=== PATIENT | female | born 1985 | race Caucasian/White ===

== ENCOUNTER 2018-07-19 17:23 | Emergency (ER) | payer OTHER ==
[2018-07-19 17:53] LABS: EOSINOPHILS % (AUTO) 5.7 % (0.0-8.0); HEMATOCRIT 38.6 % (36-48); LYMPHOCYTES % (AUTO) 30.2 % (21.0-51.0); MEAN CORPUSCULAR HEMOGLOBIN 28.9 pg (27.0-33.0); MEAN CORPUSCULAR HGB CONC 34.5 g/dL (32.0-36.0); MEAN CORPUSCULAR VOLUME 83.9 fL (79-99); MONOCYTES % (AUTO) 6.4 % (3.0-13.0); NEUTROPHILS % (AUTO) 56.7 % (40.0-77.0); NUCLEATED RED BLOOD CELLS 0.1 % (0.0-0.19); PLATELET COUNT (AUTO) 259 K/uL (130-400); RED BLOOD CELL COUNT(AUTO) 4.59 MIL/uL (4.00-5.50); WHITE BLOOD COUNT (AUTO) 6.4 K/uL (4.8-10.8)
[2018-07-19 18:00] LABS: CREATININE 0.7 mg/dL (0.5-1.5); POTASSIUM 3.6 mmol/L (3.5-5.1)
[2018-07-19 18:04] LABS: ALBUMIN 3.8 g/dL (3.5-5.0); BILIRUBIN,DIRECT 0.1 mg/dL (0.0-0.3); BILIRUBIN,TOTAL 0.7 mg/dL (0.2-1.0); TOTAL PROTEIN, SERUM 7.6 g/dL (6.0-8.3)
[2018-07-19] MEDS ORDERED: KETOROLAC TROMETHAMINE 30MG/ML ONE (18:39)
[2018-07-19] MEDS ORDERED: ONDANSETRON HCL 4 MG/2 ML VIAL ONE (18:39)
[2018-07-19] MEDS ORDERED: SODIUM CHLORIDE 0.9% 1000ML 1,000 ML IV ONE (18:39)
== END 2018-07-19 20:36 | disposition home or self-care (01) ==
LOC: EDH 17:23
DX: R07.89 Other chest pain (principal); R42 Dizziness and giddiness; Z98.51 Tubal ligation status; Z90.49 Acquired absence of other specified parts of digestive tract; Z72.0 Tobacco use
CPT/HCPCS: 36415; 71045; 80048; 80076; 82550; 84484; 85025; 93005; 96361; 96374; 96375; 99284; J1885; J2405; J7030

== ENCOUNTER 2019-01-28 23:26 | Emergency (ER) | payer BC, OTHER | END 2019-01-28 23:51 | disposition home or self-care (01) | LOC: EDH 23:26 | DX: H92.02 Otalgia, left ear (principal); I48.91 Unspecified atrial fibrillation; Z90.49 Acquired absence of other specified parts of digestive tract; Z98.890 Other specified postprocedural states ==

== ENCOUNTER 2019-07-26 21:05 | Emergency (ER) | payer OTHER | END 2019-07-26 23:51 | disposition home or self-care (01) | LOC: EDH 21:05 | DX: S90.869A Insect bite (nonvenomous), unspecified foot, initial encounter (principal); I48.91 Unspecified atrial fibrillation; Z90.49 Acquired absence of other specified parts of digestive tract; Z98.890 Other specified postprocedural states; Z88.6 Allergy status to analgesic agent | CPT/HCPCS: 99281 ==

== ENCOUNTER 2020-03-01 23:24 | Emergency (ER) | payer OTHER ==
[2020-03-02] MEDS ORDERED: KETOROLAC TROMETHAMINE 60 MG/2 ML VIAL ONE (00:21)
[2020-03-02] MEDS ORDERED: LIDOCAINE 5% TOPICAL PATCH TP ONE (00:22)
[2020-03-02] MEDS ORDERED: CYCLOBENZAPRINE HCL 10 MG TABLET ONE (00:22)
== END 2020-03-02 00:40 | disposition home or self-care (01) ==
LOC: EDH 23:24
DX: M62.830 Muscle spasm of back (principal); F43.0 Acute stress reaction; R06.4 Hyperventilation; R42 Dizziness and giddiness; R19.7 Diarrhea, unspecified; I48.91 Unspecified atrial fibrillation; Z88.6 Allergy status to analgesic agent; Z98.890 Other specified postprocedural states; Z72.0 Tobacco use
CPT/HCPCS: 93005; 96372; 99283; J1885

== ENCOUNTER 2020-08-09 13:30 | Emergency (ER) | payer SELFPAY ==
[2020-08-09 14:12] LABS: APPEARANCE,URINE Cloudy (CLEAR); BILIRUBIN,URINE Negative (NEGATIVE); COLOR,URINE Yellow (YELLOW); GLUCOSE, URINE (UA) Negative (NEGATIVE); KETONES,URINE Negative (NEGATIVE); LEUKOCYTE ESTERASE ,URINE Large (NEGATIVE); NITRATE,URINE Negative (NEGATIVE); OCCULT BLOOD,URINE Large (NEGATIVE); PH,URINE 6.5 (5.0-8.0); PROTEIN,URINE Negative (NEGATIVE); UROBILINOGEN,URINE 0.2 mg/dL (0.2-1.0)
[2020-08-09 14:15] LABS: HCG,QUAL RESULT NEGATIVE (NEGATIVE)
[2020-08-09] MEDS ORDERED: CEFTRIAXONE 1G VIAL ONE (14:17)
[2020-08-09] MEDS ORDERED: LIDOCAINE HCL-MPF 1% 2ML VIAL ONE (14:17)
[2020-08-09] MEDS ORDERED: KETOROLAC 30MG VIAL (30MG/ML) ONE (14:17)
[2020-08-09] MEDS ORDERED: PHENAZOPYRIDINE HCL 200 MG TABLET ONE (14:18)
[2020-08-09] MEDS ORDERED: ACETAMINOPHEN 325 MG TAB ONE (14:18)
[2020-08-09 14:43] LABS: BACTERIA,URINE Few /HPF (None Seen); SQUAMOUS EPITHELIAL CELL,UR Few /HPF (0-2)
== END 2020-08-09 15:19 | disposition home or self-care (01) ==
LOC: EDH 13:30
DX: N39.0 Urinary tract infection, site not specified (principal); I48.91 Unspecified atrial fibrillation; Z98.890 Other specified postprocedural states; Z90.49 Acquired absence of other specified parts of digestive tract; Z88.5 Allergy status to narcotic agent
CPT/HCPCS: 81001; 81025; 87077; 87088; 87186; 96372 ×2; 99284; J0696; J1885; J3490

== ENCOUNTER 2023-05-19 23:25 | Inpatient (IN) | payer OTHER ==
[~2023-05-19] VITALS: Ht 167.6 cm; Wt 86.4 kg
[2023-05-19 23:55] LABS: APPEARANCE,URINE CLEAR (CLEAR); BILIRUBIN,URINE NEGATIVE (NEGATIVE); COLOR,URINE COLORLESS (YELLOW); GLUCOSE, URINE (UA) NEGATIVE (NEGATIVE); KETONES,URINE NEGATIVE (NEGATIVE); LEUKOCYTE ESTERASE ,URINE 75 Leu/uL (NEGATIVE); NITRATE,URINE NEGATIVE (NEGATIVE); OCCULT BLOOD,URINE MODERATE (NEGATIVE); PH,URINE 6.5 (5.0-8.0); PROTEIN,URINE NEGATIVE (NEGATIVE); UROBILINOGEN,URINE 0.2 mg/dL (0.2-1.0)
[2023-05-19 23:57] LABS: ADD UA MICROSCOPIC YES
[2023-05-20] VITALS (9 sets, daily range): BP systolic 95–131; BP diastolic 59–74; PULSE 58–92; RESP 18–20; O2SAT 98–100
[2023-05-20] LABS: SQUAMOUS EPITHELIAL CELL,UR RARE /HPF (0-2)
[2023-05-20] MEDS ORDERED: 0.9%NACL 1000ML 1,000 ML IV ONE
[2023-05-20] MEDS ORDERED: ONDANSETRON 4MG INJ IVP ONE
[2023-05-20 00:41] LABS: BASOPHILS % (AUTO) 1.1 % (0.0-5.0); EOSINOPHILS # (AUTO) 0.81 K/uL (0.00-0.70); EOSINOPHILS % (AUTO) 9.2 % (0.0-8.0); HEMATOCRIT 35.2 % (36-48); IMMATURE GRANULOCYTE ABSOLUTE 0.02 K/uL (0-1); LYMPHOCYTES # (AUTO) 2.7 K/uL (1.0-4.8); LYMPHOCYTES % (AUTO) 31.2 % (21.0-51.0); MEAN CORPUSCULAR HEMOGLOBIN 27.9 pg (27.0-33.0); MEAN CORPUSCULAR HGB CONC 33.8 g/dL (32.0-36.0); MEAN CORPUSCULAR VOLUME 82.4 fL (79-99); MONOCYTES # (AUTO) 0.6 K/uL (0.1-1.0); MONOCYTES % (AUTO) 6.6 % (3.0-13.0); NEUTROPHILS # (AUTO) 4.5 K/uL (1.8-7.7); NEUTROPHILS % (AUTO) 51.7 % (40.0-77.0); PLATELET COUNT (AUTO) 266 K/uL (130-400); RED BLOOD CELL COUNT(AUTO) 4.27 MIL/uL (4.00-5.50); RED CELL DISTRIBUTION WIDTH 14.3 % (11.0-15.5); WHITE BLOOD COUNT (AUTO) 8.8 K/uL (4.8-10.8)
[2023-05-20 00:49] LABS: CREATININE 0.6 mg/dL (0.5-1.5); POTASSIUM 3.4 mmol/L (3.5-5.1)
[2023-05-20 01:00] LABS: ALBUMIN 3.4 g/dL (3.5-5.0); BILIRUBIN,TOTAL 0.4 mg/dL (0.2-1.0)
[2023-05-20] MEDS ORDERED: IOHEXOL 350 MG/ML 100ML INFUS..BTL IV ONE (01:35)
[2023-05-20] MEDS ORDERED: ZOSYN 3.375GM+NS 50ML 50 ML ONE (02:15)
[2023-05-20] MEDS ORDERED: 0.9%NACL 1000ML 1,000 ML IV STA (02:16)
[2023-05-20] MEDS ORDERED: HYDROMORPHONE 1 MG INJ IVP STA (02:16)
[2023-05-20] MEDS: ZOSYN 3.375GM +NS 50ML IVPB STA ×2 (02:24→02:30)
[2023-05-20] MEDS ORDERED: ZOSYN 3.375GM +NS 50ML IV ONE (02:30)
[2023-05-20] MEDS ORDERED: ACETAMINOPHEN 650 MG SUPPOSITORY RC PRN (02:30)
[2023-05-20] MEDS ORDERED: HYDROMORPHONE 1 MG INJ IVP ONE ×2 (02:30)
[2023-05-20] MEDS ORDERED: MORPHINE 2 MG SYG IV PRN (02:30)
[2023-05-20] MEDS ORDERED: MAGNESIUM 2GM PREMIX 50ML 50 ML IV PRN (03:00)
[2023-05-20] MEDS ORDERED: POTASSIUM CHLORIDE 20MEQ/100ML 100 ML IV PRN (03:00)
[2023-05-20] MEDS: LACTATED RINGERS 1000ML 1,000 ML IV SCH ×2 (03:13→17:51)
[2023-05-20] MEDS: LEVOFLOXACIN 750 MG/D5W 150ML BAG IV SCH (05:00)
[2023-05-20] MEDS ORDERED: ZOSYN 3.375GM+NS 50ML 50 ML IV SCH (05:00)
[2023-05-20] MEDS ORDERED: SOLU-MEDROL 125MG VIAL IVP ONE (05:00)
[2023-05-20] MEDS ORDERED: DiphenhydrAMINE HCL 50 MG/ML VIAL IV ONE (05:00)
[2023-05-20] MEDS ORDERED: FAMOTIDINE 20MG VIAL IV ONE (05:00)
[2023-05-20] MEDS: ONDANSETRON 4MG INJ IV PRN (05:16)
[2023-05-20] MEDS ORDERED: VITAD50000 PO (06:19)
[2023-05-20] MEDS: METRONIDAZOLE 500MG/100ML BAG 100 ML IVPB SCH ×3 (06:37→21:28)
[2023-05-20 06:48] LABS: CREATININE 0.6 mg/dL (0.5-1.5); MAGNESIUM 1.9 mg/dL (1.80-2.40); PHOSPHORUS 3.8 mg/dL (2.5-4.9); POTASSIUM 3.8 mmol/L (3.5-5.1)
[2023-05-20 06:52] LABS: INR 0.98 (0.85-1.15); PROTHROMBIN TIME 11.4 SEC (9.6-11.6)
[2023-05-20 06:53] LABS: PARTIAL THROMBOPLASTIN TIME 28.2 SEC (26.3-35.5)
[2023-05-20] MEDS: FAMOTIDINE 20MG VIAL IV SCH ×2 (09:42→20:09)
[2023-05-20] MEDS ORDERED: ACETAMINOPHEN WITH CODEINE 1 TAB TAB PO PRN (10:00)
[2023-05-20] MEDS: NICOTINE 21 MG/ 24 HR PATCH TD SCH (17:30)
[2023-05-20] MEDS: MORPHINE 4 MG SYG IV PRN (20:10)
[2023-05-21] MEDS: LEVOFLOXACIN 750 MG/D5W 150ML BAG IV SCH (04:07)
[2023-05-21] MEDS: MORPHINE 4 MG SYG IV PRN (04:14)
[2023-05-21] MEDS: METRONIDAZOLE 500MG/100ML BAG 100 ML IVPB SCH ×3 (04:53→21:19)
[2023-05-21] MEDS: LACTATED RINGERS 1000ML 1,000 ML IV SCH (04:53)
[2023-05-21 04:57] VITALS: BP 124/69; PULSE 89; RESP 20
[2023-05-21 05:13] LABS: BASOPHILS # (AUTO) 0.03 K/uL (0.00-0.20); BASOPHILS % (AUTO) 0.2 % (0.0-5.0); EOSINOPHILS # (AUTO) 0.01 K/uL (0.00-0.70); EOSINOPHILS % (AUTO) 0.1 % (0.0-8.0); HEMATOCRIT 31.9 % (36-48); IMMATURE GRANULOCYTE ABSOLUTE 0.08 K/uL (0-1); LYMPHOCYTES # (AUTO) 1.2 K/uL (1.0-4.8); LYMPHOCYTES % (AUTO) 8.6 % (21.0-51.0); MEAN CORPUSCULAR HEMOGLOBIN 28.3 pg (27.0-33.0); MEAN CORPUSCULAR HGB CONC 33.9 g/dL (32.0-36.0); MEAN CORPUSCULAR VOLUME 83.7 fL (79-99); MONOCYTES # (AUTO) 0.9 K/uL (0.1-1.0); MONOCYTES % (AUTO) 6.7 % (3.0-13.0); NEUTROPHILS # (AUTO) 11.8 K/uL (1.8-7.7); NEUTROPHILS % (AUTO) 83.8 % (40.0-77.0); PLATELET COUNT (AUTO) 279 K/uL (130-400); RED BLOOD CELL COUNT(AUTO) 3.81 MIL/uL (4.00-5.50); RED CELL DISTRIBUTION WIDTH 14.3 % (11.0-15.5); WHITE BLOOD COUNT (AUTO) 14.1 K/uL (4.8-10.8)
[2023-05-21 05:18] LABS: CREATININE 0.8 mg/dL (0.5-1.5); POTASSIUM 3.7 mmol/L (3.5-5.1)
[2023-05-21] MEDS ORDERED: DIATR MEGLU/DIATRIZOATE SODIUM 30 ML BOTTLE ONE (05:31)
[2023-05-21 08:45] VITALS: O2SAT 100
[2023-05-21] MEDS: NICOTINE 21 MG/ 24 HR PATCH TD SCH (09:00)
[2023-05-21] MEDS ORDERED: IOHEXOL 350 MG/ML 100ML INFUS..BTL IV ONE (09:47)
[2023-05-21 11:42] VITALS: BP 108/60; PULSE 54; RESP 20
[2023-05-21] MEDS: FAMOTIDINE 20MG VIAL IV SCH ×2 (15:02→21:19)
[2023-05-21 16:39] VITALS: BP 114/71; PULSE 57; RESP 18
[2023-05-21 19:15] VITALS: O2SAT 99
[2023-05-21 21:04] VITALS: BP 113/78; PULSE 74; RESP 21
[2023-05-21] MEDS: ONDANSETRON 4MG INJ IV PRN (21:30)
[2023-05-22 00:27] VITALS: BP 126/79; PULSE 72; RESP 20
[2023-05-22 04:17] VITALS: BP 107/79; PULSE 65; RESP 18
[2023-05-22 04:22] LABS: BASOPHILS # (AUTO) 0.07 K/uL (0.00-0.20); EOSINOPHILS # (AUTO) 0.18 K/uL (0.00-0.70); EOSINOPHILS % (AUTO) 2.5 % (0.0-8.0); HEMATOCRIT 30.6 % (36-48); IMMATURE GRANULOCYTE ABSOLUTE 0.02 K/uL (0-1); LYMPHOCYTES # (AUTO) 2.1 K/uL (1.0-4.8); LYMPHOCYTES % (AUTO) 29.5 % (21.0-51.0); MEAN CORPUSCULAR HEMOGLOBIN 27.7 pg (27.0-33.0); MEAN CORPUSCULAR HGB CONC 33.3 g/dL (32.0-36.0); MEAN CORPUSCULAR VOLUME 83.2 fL (79-99); MONOCYTES # (AUTO) 0.4 K/uL (0.1-1.0); MONOCYTES % (AUTO) 5.9 % (3.0-13.0); NEUTROPHILS # (AUTO) 4.3 K/uL (1.8-7.7); NEUTROPHILS % (AUTO) 60.8 % (40.0-77.0); PLATELET COUNT (AUTO) 221 K/uL (130-400); RED BLOOD CELL COUNT(AUTO) 3.68 MIL/uL (4.00-5.50); RED CELL DISTRIBUTION WIDTH 14.6 % (11.0-15.5); WHITE BLOOD COUNT (AUTO) 7.1 K/uL (4.8-10.8)
[2023-05-22 04:39] LABS: ALBUMIN 2.8 g/dL (3.5-5.0); BILIRUBIN,TOTAL 0.3 mg/dL (0.2-1.0); CREATININE 0.7 mg/dL (0.5-1.5); POTASSIUM 3.5 mmol/L (3.5-5.1); TOTAL PROTEIN, SERUM 5.8 g/dL (6.0-8.3)
[2023-05-22] MEDS: LEVOFLOXACIN 750 MG/D5W 150ML BAG IV SCH (05:31)
[2023-05-22] MEDS ORDERED: LEVO-70 PO (07:44)
[2023-05-22] MEDS ORDERED: ONDA-104 PO (07:44)
[2023-05-22] MEDS: METRONIDAZOLE 500MG/100ML BAG 100 ML IVPB SCH (07:46)
[2023-05-22] MEDS: ONDANSETRON 4MG INJ IV PRN (07:49)
[2023-05-22 07:59] VITALS: BP 112/64; PULSE 56; RESP 18
[2023-05-22] MEDS: NICOTINE 21 MG/ 24 HR PATCH TD SCH (08:54)
[2023-05-22] MEDS: FAMOTIDINE 20MG VIAL IV SCH (08:54)
[2023-05-22 09:00] VITALS: O2SAT 98
== END 2023-05-22 11:33 | disposition home or self-care (01) | DRG 690 ==
LOC: EDH 23:25 → EDHIP 23:26 → 4AH 05-20 03:01
PROVIDERS: ADMIT Hospitalist; ATTEND Hospitalist
DX: N39.0 Urinary tract infection, site not specified (principal); I48.91 Unspecified atrial fibrillation; E87.6 Hypokalemia; R82.71 Bacteriuria; Z88.8 Allergy status to other drugs, medicaments and biological substances; F17.210 Nicotine dependence, cigarettes, uncomplicated; Z59.7 Insufficient social insurance and welfare support; Z75.3 Unavailability and inaccessibility of health-care facilities; Z80.3 Family history of malignant neoplasm of breast; Z90.49 Acquired absence of other specified parts of digestive tract
CPT/HCPCS: 36415; 74177; 74178; 80048; 80053; 81001; 83605; 83690; 83735; 84100; 84145; 84702; 85025; 85610; 85730; 86850; 86900; 86901; 87040; 87088; 93005; G0378; J1170; J1200; J1956; J2270; J2405; J2543; J2930; J3490; J7030; Q9963; Q9967